=== PATIENT | male | born 1990 | race Caucasian/White ===

== ENCOUNTER 2024-02-22 05:56 | Emergency (ER) | payer OTHER | END 2024-02-22 07:29 | disposition home or self-care (01) | LOC: FB.ED 05:56 | DX: S20.212A Contusion of left front wall of thorax, initial encounter (principal); W22.8XXA Striking against or struck by other objects, initial encounter; Y93.89 Activity, other specified; Y99.0 Civilian activity done for income or pay | CPT/HCPCS: 71101-LT; 99283 ==